=== PATIENT | male | born 1990 | race Caucasian/White ===

== ENCOUNTER 2019-11-17 01:16 | Emergency (ER) | payer OTHER ==
[2019-11-17 01:44] VITALS: BP 130/91; PULSE 82; TEMP 98.4; BMI 30.5
[2019-11-17] MEDS ORDERED: SODIUM CHLORIDE 0.9% 500 ML INFUS.BAG IV ONE (02:14)
[2019-11-17] MEDS ORDERED: ACETAMINOPHEN 1000 MG/100 ML VIAL (NON FORMULARY) IVPB ONE (02:14)
--- NOTE | 2019-11-17 02:14 | PDOC ---
History of Present Illness - General Chief Complaint: Headache Stated Complaint: HEADACHE Time Seen by Provider: 11/17/19 01:59 - History of Present Illness Initial Comments: 29 years old man with no past medical history come to the ED for 1 day of headaches. Headache started out yesterday around 3:00 a.m. severe in nature, suddenly, , started out from the back moving slowly to the front. Tylenol didn't help. He denies trauma. He usually has headches 2-3 x a week, but never this bad. He denies vomiting, nausea, vision changes, dizziness, SOB, chest pain. He had a headache similar to this one around 2 months ago then he went to the ED they gave him fluid and pain control and it got better. PMHX: none PSHX: none Meds: tylenol Allergies: none Tob: none Etoh: none Rec drugs:none PCP: [facility] GENERAL/CONSTITUTIONAL: No fever or chills. No weakness. HEAD, EYES, EARS, NOSE AND THROAT: No change in vision. No ear pain or discharge. No sore throat. CARDIOVASCULAR: No chest pain or shortness of breath RESPIRATORY: No cough, wheezing, or hemoptysis. GASTROINTESTINAL: + nausea, no vomiting, diarrhea or constipation. GENITOURINARY: No dysuria, frequency, or change in urination. MUSCULOSKELETAL: No joint or muscle swelling or pain. No neck or back pain. SKIN: No rash NEUROLOGIC: + headache, no vertigo, loss of consciousness, or change in strength/sensation. ENDOCRINE: No increased thirst. No abnormal weight change HEMATOLOGIC/LYMPHATIC: No anemia, easy bleeding, or history of blood clots. ALLERGIC/IMMUNOLOGIC: No hives or skin allergy. PE GENERAL: Awake, alert, and fully oriented, in no acute distress HEAD: No signs of trauma, normocephalic, atraumatic EYES: PERRLA, EOMI, sclera anicteric, conjunctiva clear ENT: Auricles normal inspection, hearing grossly normal, nares patent, or opharynx clear without exudates. Moist mucosa NECK: Normal ROM, supple, no lymphadenopathy, JVD, or masses LUNGS: No distress, speaks full sentences, clear to auscultation bilaterally HEART: Regular rate and rhythm, normal S1 and S2, no murmurs, rubs or gallops, peripheral pulses normal and equal bilaterally. ABDOMEN: Soft, nontender, normoactive bowel sounds. No guarding, no rebound. No masses EXTREMITIES : Normal inspection, Normal range of motion, no edema. No clubbing or cyanosis. NEUROLOGICAL: Cranial nerves II through XII grossly intact. Normal speech, normal gait, no focal sensorimotor deficits SKIN: Warm, Dry, normal turgor, no rashes or lesions noted Past History - Medical History Allergies/Adverse Reactions: Allergies Allergy/AdvReac Type Severity Reaction Status Date / Time No Known Allergies Allergy Verified 11/17/19 01:44 Home Medications: Ambulatory Orders NK [No Known Home Medication] 11/17/19 - Psycho-Social/Smoking History Smoking History: Never smoked Have you smoked in the past 12 months: No Information on smoking cessation initiated: No - Substance Abuse Hx (Audit-C & DAST Scrn) How often the patient has a drink containing alcohol: Never Score: In Men: 4 or > Positive; In Women: 3 or > Positive: 0 Screen Result (Pos requires Nsg. Audit-10AR): Negative In the last yr the pt used illegal drug/Rx for NonMed reason: No Score: Yes response is considered Positive: 0 Screen Result (Positive result requires Nsg. DAST-10): Negative *Physical Exam - Vital Signs Last Vital Signs Temp Pulse Resp BP Pulse Ox 98.4 F 82 20 130/91 97 11/17/19 01:43 11/17/19 01:43 11/17/19 01:43 11/17/19 01:43 11/17/19 01:43 Procedures - Lumbar Puncture Indication: Subarachnoid Hemmorhage CT Scan: Yes Betadine Prep: Yes Position: Left lateral decubitus Site: L3-L4 Local Anesthesia: 1% Lidocaine with epi Volume(ml): 10 Lumbar Puncture Kit: Adult Needle Size(gauge): 20 Traumatic Tap: No Clear Fluid: Yes Complications: No ED Treatment Course - LABORATORY CBC & Chemistry Diagram: 11/17/19 03:16 11/17/19 03:16 Medical Decision Making - Medical Decision Making 29 M with no PMH presented to ED with 1 day of sudden severe headache, concerning for SAH. He missed the 6hrs window for SAH, need CT head scan and LP. CT Scan head non contrast LP to look for xanthochromia. Procedure note for LP is recorded. fluid is clear. Samples are sent. 11/17/19 04:29 CBC, CMP came back, revealed no elevated WBC, and no concerning problems. 11/17/19 04:47 Patient is reassesed, felt good. Awaiting formal result LP, and Scan. 11/17/19 05:58 CSF results are negative. CAT SCAN of head is negative. Torado 15 mg is given. Patient felt improved. Patient will be d/c with precaution return. 11/17/19 06:07 Discharge - Discharge Information Problems reviewed: Yes Clinical Impression/Diagnosis: Headache Qualifiers: Headache type: unspecified Headache chronicity pattern: acute headache Intractability: not intractable Qualified Code(s): R51 - Headache Condition: Improved Disposition: HOME - Admission No - Follow up/Referral Referrals: Dandy Alatorre MD [Staff Physician] - Israel Estrada MD [Staff Physician] - Bull Couch MD [Staff Physician] - - Patient Discharge Instructions Patient Printed Discharge Instructions: DI for Headache Additional Instructions: Discharge Instructions: You were seen in the emergency department for headache. Home Care and Follow Up: - You may use over the counter medications as needed for pain at home. 650- 1000mg acetaminophen (Tylenol) or 600mg ibuprofen (Motrin or Advil) can be used every 6-8 hours. If needed for continued pain, these medications may be alternated every 3-4 hours. For example, if you take ibuprofen at 9am, you may take acetaminophen at noon, ibuprofen at 3pm, etc. - It is strongly recommended that you take ibuprofen with food to help prevent stomach irritation. If you are taking it for more than a day or two, you may consider taking an acid medication such as Pepcid, available over the counter, to protect your stomach. This should be taken first thing in the morning 30-60 minutes before any food or medications. - You should stay hydrated, drink enough water, should pee every 4 hours. -When you go home, lay flat for a couple hours. - If your pain does not improve over the next few days, you should make an appointment to see your PCP. - Seek immediate medical care if you have significant worsening of your symptoms, such as worsening headache, Nausea, severe vomiting, change of vision, dizziness, abnormal gait, please come back. - Post Discharge Activity
[2019-11-17] MEDS ORDERED: METOCLOPRAMIDE HCL INJECTION 10 MG/2 ML VIAL IVPB ONE (02:44)
[2019-11-17] MEDS ORDERED: ACETAMINOPHEN INJECTION 100 ML IVPB ONE (02:47)
[2019-11-17] MEDS ORDERED: METOCLOPRAMIDE HCL INJECTION 10 MG/2 ML VIAL ONE (03:28)
--- NOTE | 2019-11-17 03:36 | PDOC ---
Attending Attestation - Resident Resident Name: Hayes Ramirez - ED Attending Attestation I have performed the following: I have examined & evaluated the patient, The case was reviewed & discussed with the resident, I agree w/resident's findings & plan - HPI HPI: 11/17/19 03:35 29 years old man with no past medical history come to the ED for 1 day of headaches. Headache started out yesterday around 3:00 a.m. severe in nature, 8/ 10, started out from the occiput moving slowly to the front and now generalized. Tylenol didn't help. He denies trauma. He usually has headches 2-3 x a week, but never this bad. He denies vomiting, nausea, vision changes, dizziness, SOB, chest pain. He had a headache similar to this one around 2 months ago then he went to the ED they gave him fluid and pain control and it got better. 11/17/19 03:35 - Physicial Exam PE: 11/17/19 03:35 General: Well appearing, awake and alert, NAD. GCS 15 HEENT: NCAT, PERRL, EOMI, clear conjunctiva, anicteric, moist mucous membranes, clear oropharynx, no oral lesions.. Neck: neck supple, FROM Resp: CTAB, normal and even respirations, no respiratory distress CVS: RRR, no murmurs, 2+ peripheral pulses throughout, no peripheral edema Abdomen: soft, NTND, no rebound or guarding. No CVAT. Back: nontender, normal inspection and ROM MSK: no edema, EDWARDS x4, ROM intact. No clubbing or cyanosis. normal bulk and tone. Extremities: no calf tenderness Neuro: alert, oriented appropriately; no focal neurologic deficits, speech clear. Skin: warm and well perfused, cap refill <2 sec, normal color 11/17/19 04:44 - Medical Decision Making 11/17/19 03:35 Vital Signs Temp Pulse Resp BP Pulse Ox 98.4 F 82 20 130/91 97 11/17/19 01:43 11/17/19 01:43 11/17/19 01:43 11/17/19 01:43 11/17/19 01:43 11/17/19 04:44 DDX headache: migraine, tension, cluster headache, SAH, CVA, head bleed/ICH. MDM: The patient presents with an acute onset headache for a 1 day in duration. Patient has no past history of headaches. There Is Not a history of anticoagulation, trauma, cancer or immunocompromised state. Mental status was normal, no neurological deficits were noted. -Patient denies new weakness on one side of the body, diplopia, vertigo, slurred speech, headache, or difficulty walking. - Kernig and Brudzinski signs are negative, no petechiae, no photophobia, no dysarthria, no facial asymmetry, and no focal deficits. Very low clinical suspicion for meningitis. CT head was negative for acute bleed, infarct, mass, or shift. LP was performed and was negative for WBC or xanthochromia. No evidence of subarachnoid hemorrhage, intracranial bleed, meningitis, encephalitis, temporal arteritis, or intracranial mass. more likely tension vs migraine headache. neuro followup provided. Based on the patient's history and physical there is very low clinical suspicion for significant intracranial pathology. DC with PCP/neuro followup, analgesia and rest/hydration, avoid potential triggers. return precautions provided 11/19/19 19:33 11/19/19 19:34 Discharge - Discharge Information Problems reviewed: Yes Clinical Impression/Diagnosis: Headache Qualifiers: Headache type: unspecified Headache chronicity pattern: acute headache Intractability: not intractable Qualified Code(s): R51 - Headache Condition: Improved Disposition: HOME - Admission No - Follow up/Referral Referrals: Bull Couch MD [Staff Physician] - Israel Estrada MD [Staff Physician] - Dandy Alatorre MD [Staff Physician] - - Patient Discharge Instructions Patient Printed Discharge Instructions: DI for Headache Additional Instructions: Discharge Instructions: You were seen in the emergency department for headache. Home Care and Follow Up: - You may use over the counter medications as needed for pain at home. 650- 1000mg acetaminophen (Tylenol) or 600mg ibuprofen (Motrin or Advil) can be used every 6-8 hours. If needed for continued pain, these medications may be alternated every 3-4 hours. For example, if you take ibuprofen at 9am, you may take acetaminophen at noon, ibuprofen at 3pm, etc. - It is strongly recommended that you take ibuprofen with food to help prevent stomach irritation. If you are taking it for more than a day or two, you may consider taking an acid medication such as Pepcid, available over the counter, to protect your stomach. This should be taken first thing in the morning 30-60 minutes before any food or medications. - You should stay hydrated, drink enough water, should pee every 4 hours. -When you go home, lay flat for a couple hours. - If your pain does not improve over the next few days, you should make an appointment to see your PCP. - Seek immediate medical care if you have significant worsening of your symptoms, such as worsening headache, Nausea, severe vomiting, change of vision, dizziness, abnormal gait, please come back. - Post Discharge Activity
[2019-11-17 03:45] LABS: BASO % 0.6 % (0-2.0); HEMATOCRIT 49.2 % (35.4-49); HEMOGLOBIN 16.4 GM/dL (11.7-16.9); LYMPH % 33.4 % (8-40); MCH 30.2 pg (25.7-33.7); MCHC 33.4 g/dl (32.0-35.9); MEAN CELL VOLUME 90.5 fl (80-96); MEAN PLT VOLUME 8.7 fl (7.5-11.1); PLATELET COUNT 315 K/MM3 (134-434); RBC 5.44 M/mm3 (4.00-5.60); WHITE BLOOD COUNT 9.1 K/mm3 (4.0-10.0)
[2019-11-17 03:57] LABS: INR 1.03 (0.83-1.09); PROTHROMBIN TIME (PATIENT) 12.1 SEC (9.7-13.0)
[2019-11-17 03:59] LABS: ACTIVATED PTT 34.2 SECONDS (25.2-36.5)
[2019-11-17 04:07] LABS: ALBUMIN 4.6 g/dl (3.4-5.0); BILIRUBIN,TOTAL 0.4 mg/dL (0.2-1); BLOOD UREA NITROGEN 10.4 mg/dL (7-18); CALCIUM 9.7 mg/dL (8.5-10.1); CREATININE 1.2 mg/dL (0.55-1.3); POTASSIUM 4.1 mmol/L (3.5-5.1); TOT PROT 8.3 g/dl (6.4-8.2)
[2019-11-17 05:36] LABS: CSF APPEARANCE CLEAR; CSF COLOR COLORLESS; CSF WBC 0
[2019-11-17] MEDS ORDERED: KETOROLAC TROMETHAMINE 15 MG/ML VIAL IVPUSH ONE (05:42)
[2019-11-17 05:44] LABS: BF GLUCOSE (CSF ONLY) 55 mg/dL (40-70)
== END 2019-11-17 06:17 | disposition home or self-care (01) ==
LOC: JER 01:16
PROC: 3E0333Z Introduction of Anti-inflammatory into Peripheral Vein, Percutaneous Approach (ICD-10-PCS; principal; 2019-11-17)
PROC: 3E033GC Introduction of Other Therapeutic Substance into Peripheral Vein, Percutaneous Approach (ICD-10-PCS; 2019-11-17)
DX: R51 Headache (principal)
CPT/HCPCS: 36415; 70450-TC; 80053; 82945; 84157; 85025; 85610; 85730; 87070; 87205; 99284-25; J0131